=== PATIENT | male | born 1980 | race Caucasian/White ===

== ENCOUNTER 2024-01-29 09:28 | Day surgery (SDC) | payer OTHER, SELFPAY ==
--- NOTE | 2024-01-29 | PATH_ITS ---
[facility] Accession Number: [id number] No. of containers..04 Tissue . 01 Material submitted: . PART A: duodenum - DUODENAL BIOPSY PART B: gastrointestinal site - ANTRUM PART C: esophagus, E-G Junction - GE JUNCTION PART D: rectum - RECTAL POLYP . 01 Diagnosis: A. DUODENUM, BIOPSY: Duodenal mucosa with focal minimal acute inflammation and generally preserved villous architecture. Features of celiac disease are not seen. . B. GASTRIC ANTRUM, BIOPSY: Gastric antral-type mucosa with mild reactive changes. Negative for intestinal metaplasia and dysplasia. No evidence of Helicobacter pylori organisms on immunohistochemistry. . C. GASTROESOPHAGEAL JUNCTION, BIOPSY: Gastric mucosa with focal intestinal metaplasia, chronically inflamed; see comment. Negative for dysplasia and malgnancy. Hyperplastic squamous mucosa with changes suggestive of reflux disease. . D. RECTAL POLYP, POLYPECTOMY: Hyperplastic polyp. . COMMENT: In part C, focal intestinal metaplasia is seen. Clinical and endoscopic correlation is necessary to determine whether the intestinal metaplasia seen represents intestinal metaplasia of gastric cardia or Rosado mucosa. [facility] 02/07/2024 1355 Local . 01 Electronically signed: . Demetrice Murguia MD, Pathologist NPI- [id number] . 01 Gross description: . Part A: DUODENAL BIOPSY: Received in formalin are multiple fragment(s) of car[place], soft tissue measuring 0.1 x 0.1 x 0.1 cm to 0.3 x 0.3 x 0.3 cm submitted entirely in 1 cassette(s) Part B: ANTRUM: Received in formalin are 2 fragment(s) of carlisle, soft tissue measuring 0.3 x 0.3 x 0.1 cm to 0.4 x 0.3 x 0.2 cm submitted entirely in 1 cassette(s) Part C: GE JUNCTION: Received in formalin are 2 fragment(s) of carlisle, soft tissue measuring 0.2 x 0.2 x 0.2 cm to 0.4 x 0.2 x 0.2 cm submitted entirely in 1 cassette(s) Part D: RECTAL POLYP: Received in formalin is 1 fragment(s) of carlisle, soft tissue measuring 0.2 x 0.2 x 0.2 cm submitted entirely in 1 cassette(s) /LILIA 02/01/2024 1855 Local . 01 Microscopic: . B. An immunohistochemical stain was performed to evaluate for Helicobacter organisms and is negative. The control stain showed appropriate reactivity. . * This test was developed and its performance characteristics determined by [employer]. It has not been cleared or approved by the [place]. Food and Drug Administration. The FDA has determined that such clearance or approval is not necessary. This test is used for clinical purposes. It should not be regarded as investigational or for research. . 01 Pathologist provided ICD-10: K63.5 . 01 CPT . 240391, 459711, 660366, 165301, [id number] Specimen Comment: A courtesy copy of this report has been sent to [phone] Performed at: 01 [facility] [address] [place] [address], [place], [place] [id number] MD Ian Meadows MD Phone: [phone]
[2024-01-29 09:46] VITALS: BP 153/99; PULSE 85; RESP 17; TEMP 36.6; O2SAT 99
--- NOTE | 2024-01-29 09:48 | PM.PREOP ---
Pre-operative Note COVID-19 COVID-19 status: Not tested Interval Note History & Physical reviewed/Exam performed by Physician: Yes Changes to H&P: No ASA Class (for procedural sedation): II
[2024-01-29] MEDS: LACTATED RINGERS 1,000 ML 42 ML IV (10:00)
--- NOTE | 2024-01-29 10:40 | PM.OP.EC ---
Operative Date/Time/Diagnoses Date of procedure: 01/29/24 Time of procedure: 10:40 Pre-op diagnosis: Diarrhea Post-op diagnosis: same Procedure & Clinicians Study performed: EGD and colonoscopy Same procedure as scheduled: Yes Surgeon: Ge Alcantara Procedure Notes Procedure in detail: Surgeon: Ge Alcantara MD Anesthesia: Filiberto Lynch DO Procedure in detail: A timeout was performed. A bite blocked was placed and monitors were attached to the patient. The patient was positioned in the left lateral decubitus position. Sedation was administered. Once the patient was sedated the endoscope was inserted through the bite block and passed through the esophagus and stomach and into the duodenum. The mucosa appeared normal. We performed random biopsies from the duodenum to rule out celiac disease. We then withdrew the scope into the stomach. There was some mild antritis and random biopsies were taken from the antrum. The endoscope was retroflexed and a small hiatal hernia was noted. The endoscope was straightned and withdrawn into the esophagus. There was some patches of salmon-colored mucosa at the GE junction and biopsies were taken. The rest of the esophagus was normal. EGD findings: Antritis and salmon-colored patches of mucosa at the GE junction Next we repositioned the patient for a colonoscopy. A digital rectal exam was performed and was normal. The colonoscope was inserted and advanced to the cecum. The appendiceal orifice was identified and photographed. The scope was slowly withdrawn over greater than 6 minutes. No abnormalities were seen. No evidence colitis was noted. The scope was retroflexed in the rectum and no abnormalities were seen. Colonoscopy findings: Normal colonoscopy Total procedural EBL: 5 mL Colonoscope withdrawal time: 9 minutes Sedation minutes: 23 minutes Post-procedure Disposition: PACU
[2024-01-29 10:41] VITALS: BP 124/72; PULSE 76; RESP 18; TEMP 36.4; O2SAT 94
[2024-01-29 10:46] VITALS: BP 118/86; PULSE 71; RESP 16; O2SAT 96
[2024-01-29 10:51] VITALS: BP 118/85; PULSE 85; RESP 18; O2SAT 93
[2024-01-29 10:57] VITALS: BP 128/90; PULSE 74; RESP 22; O2SAT 93
== END 2024-01-29 11:13 | disposition home or self-care (01) ==
PROVIDERS: PCP Nurse Practitioner Family; Referring Provider Surgery; Visit Provider Surgery
PROC: 0DJ08ZZ Inspection of Upper Intestinal Tract, Via Natural or Artificial Opening Endoscopic (ICD-10-PCS; CPT 43235; principal; 2024-01-29 10:15)
PROC: 0DJD8ZZ Inspection of Lower Intestinal Tract, Via Natural or Artificial Opening Endoscopic (ICD-10-PCS; CPT 45378; 2024-01-29 10:15)
DX: R19.7 Diarrhea, unspecified (principal); R11.10 Vomiting, unspecified; K29.50 Unspecified chronic gastritis without bleeding; K44.9 Diaphragmatic hernia without obstruction or gangrene; K29.80 Duodenitis without bleeding; K62.1 Rectal polyp
CPT/HCPCS: 45378; 43239; J2704